=== PATIENT | male | born 1965 ===

== ENCOUNTER 2020-05-12 10:16 | Emergency (ER) | payer OTHER ==
[~2020-05-12] VITALS: Ht 152.4 cm; Wt 93.2 kg
[2020-05-12 10:49] LABS: HEMATOCRIT 33.2 % (39.0-50.0); HEMOGLOBIN 10.8 g/dl (14.0-18.0); IMMATURE GRANULOCYTES 0.3 % (0.0-5.0); MEAN CORPUSCULAR HGB 29.3 pG CALC (26.0-32.0); MEAN CORPUSCULAR HGB CONC 32.5 g/dL CAL (32.0-36.0); NEUT# 5.15 thou/uL (1.82-7.42); RED BLOOD COUNT 3.69 mill/uL (4.70-6.10); RED CELL DISTRI WIDTH 12.8 % (11.5-15.5)
[2020-05-12 11:10] LABS: ALBUMIN 3.9 g/dL (3.2-5.0); CREATININE 3.4 mg/dL (0.7-1.3); POTASSIUM 4.8 mmol/l (3.5-5.1); TOTAL PROTEIN 7.6 g/dL (6.3-8.2)
[2020-05-12 11:15] LABS: BILIRUBIN, TOTAL 0.5 mg/dL (0.0-1.4)
[2020-05-12 11:20] LABS: C-REACTIVE PROTEIN 17.4 mg/dL (0-0.9)
[2020-05-12 14:15] VITALS: BP 112/63
[2020-05-12] MEDS ORDERED: BETIMOL0.5 % OU (20:29)
[2020-05-12] MEDS ORDERED: NOVOLIN 70/30 SC (20:29)
[2020-05-12] MEDS ORDERED: NITROBID2 % TD (20:30)
[2020-05-12] MEDS ORDERED: VITAMIN B-1100 M1 PO (20:31)
[2020-05-12] MEDS ORDERED: ALLOPURINOL100 MG PO (20:31)
[2020-05-12] MEDS ORDERED: BUMETANIDE1 MG PO (20:32)
[2020-05-12] MEDS ORDERED: OMEGA-3 FISH1000 MG PO (20:32)
[2020-05-12] MEDS ORDERED: HYDRALAZINE100 MG PO (20:33)
[2020-05-12] MEDS ORDERED: CARVEDILOL25 MG PO (20:33)
[2020-05-12] MEDS ORDERED: FERR SULFATE325 MG PO (20:34)
[2020-05-12] MEDS ORDERED: POTASSIUM CHLO10 MEQ PO (20:35)
[2020-05-12] MEDS ORDERED: HUMULIN R500 UNIT/1 SC (20:35)
[2020-05-12] MEDS ORDERED: TERAZOSIN2 MG PO (20:36)
[2020-05-12] MEDS ORDERED: BRIMONIDINE0.2 % OU (20:37)
[2020-05-12] MEDS ORDERED: DORZOLAMIDE HYDRO2 % OD (20:37)
[2020-05-12] MEDS ORDERED: ASPIRIN81 MG PO (20:38)
== END 2020-05-12 14:49 | DRG 177 ==
LOC: ED 10:16
PROVIDERS: Family Medicine
DX: U07.1 COVID-19 (principal); I21.4 Non-ST elevation (NSTEMI) myocardial infarction; J96.00 Acute respiratory failure, unspecified whether with hypoxia or hypercapnia; J12.89 Other viral pneumonia; E11.9 Type 2 diabetes mellitus without complications; I11.0 Hypertensive heart disease with heart failure; I50.9 Heart failure, unspecified